=== PATIENT | female | born 1995 | race African-American/Black ===

== ENCOUNTER 2016-06-26 22:23 | Emergency (ER) | payer OTHER ==
[2016-06-27] MEDS ORDERED: Morphine INJ* 4 MG/ML 1 ML SYRINGE IV ONE (01:55)
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
[2016-06-27 03:41] VITALS: BP 140/87
== END 2016-06-27 03:40 | disposition home or self-care (01) ==
LOC: ED 22:23
DX: T79.2XXA Traumatic secondary and recurrent hemorrhage and seroma, initial encounter (principal); M54.5 Low back pain
CPT/HCPCS: 96374; 99282; J2270

== ENCOUNTER 2016-08-13 17:50 | Emergency (ER) | payer OTHER ==
[2016-08-13 18:17] VITALS: BP 107/83
[2016-08-13] MEDS ORDERED: predniSONE TAB* 20 MG PO ONE (20:12)
--- NOTE | 2016-08-13 20:13 | UC ---
Skin Complaint HPI - HPI Summary HPI Summary: 20 yo female with the onset of hives soon after a dose of keflex no relief with benadryl some wheezing (asthmatic) - History of Current Complaint Chief Complaint: UCRash Time Seen by Provider: 08/13/16 19:59 Stated Complaint: POSS ALLERGIC REACTION/PERIODIC SHORTNESS OF BREAT Hx Obtained From: Patient Hx Last Menstrual Period: has nexplanon Onset/Duration: Sudden Onset Onset Severity: Mild Current Severity: Mild Pain Intensity: 2 Pain Scale Used: 0-10 Numeric Location: Diffuse Character: Pruritus, Redness Aggravating: Nothing Alleviating: Nothing Associated Signs & Symptoms: Positive: Rash - Allergy/Home Medications Allergies/Adverse Reactions: Allergies Allergy/AdvReac Type Severity Reaction Status Date / Time Latex Allergy Intermediate Itching Verified 08/13/16 17:59 Penicillins [PCN] Allergy Rash Verified 08/13/16 17:59 Home Medications: Home Medications Mometasone/Formoter 200/5 MDI* [Dulera 200/5 MDI*] 1 puff INH DAILY 08/13/16 [ History Confirmed 08/13/16] Review of Systems Constitutional: Negative Skin: Rash Eyes: Negative ENT: Negative Respiratory: Negative Cardiovascular: Negative Gastrointestinal: Negative Genitourinary: Negative Motor: Negative Neurovascular: Negative Musculoskeletal: Negative Neurological: Negative Psychological: Negative All Other Systems Reviewed And Are Negative: Yes PMH/Surg Hx/FS Hx/Imm Hx Previously Healthy: Yes Respiratory History: Asthma - Surgical History Surgical History: Yes Surgery Procedure, Year, and Place: nasal surgery. LEFT WRIST REPAIR 2010-AUGUST , Hardware removed 07/2014 - Family History Known Family History: Positive: Hypertension, Diabetes - Social History Alcohol Use: Rare Substance Use Type: None Smoking Status (MU): Never Smoked Tobacco Have You Smoked in the Last Year: No Household Exposure Type: Cigarettes - Immunization History Most Recent Influenza Vaccination: 2012 Physical Exam Triage Information Reviewed: Yes Appearance: Well-Appearing, No Pain Distress, Well-Nourished Vital Signs: Initial Vital Signs Temp 98.8 F 08/13/16 18:01 Pulse 106 08/13/16 18:01 Resp 20 08/13/16 18:01 BP 107/83 08/13/16 18:01 Pulse Ox 99 08/13/16 18:01 Eyes: Positive: Conjunctiva Clear ENT: Positive: Normal ENT inspection, Pharynx normal, TMs normal. Negative: Trismus, Muffled/hoarse voice Neck: Positive: Supple, Nontender Respiratory: Positive: Chest non-tender, Lungs clear, Normal breath sounds, No respiratory distress Cardiovascular: Positive: RRR Musculoskeletal: Positive: ROM Intact, No Edema Neurological: Positive: Alert Skin: Positive: Other - urticaria Course/Dx - Diagnoses Provider Diagnoses: hives. bronchospasm by history Discharge - Discharge Plan Condition: Stable Disposition: HOME Prescriptions: Prednisone 60 mg PO DAILY #6 tab hydrOXYzine HCL TAB* [Atarax TAB*] 25 mg PO QID PRN #20 tab PRN Reason: Itching Patient Education Materials: Urticaria (ED) Referrals: JONN Moody [Primary Care Provider] - Additional Instructions: recheck for new or worsening symptoms or if not better in 3-4 days
== END 2016-08-13 20:21 | disposition home or self-care (01) ==
LOC: UCCORT 17:50
DX: L50.0 Allergic urticaria (principal); J98.01 Acute bronchospasm; T36.1X5A Adverse effect of cephalosporins and other beta-lactam antibiotics, initial encounter; Y92.9 Unspecified place or not applicable; Z88.0 Allergy status to penicillin; Z91.040 Latex allergy status; Z77.22 Contact with and (suspected) exposure to environmental tobacco smoke (acute) (chronic)
CPT/HCPCS: 99212; G0463; J7512

== ENCOUNTER 2016-09-06 21:45 | Emergency (ER) | payer OTHER ==
[2016-09-06 22:02] VITALS: BP 115/59
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
[2016-09-06] MEDS ORDERED: Ketorolac INJ* 60 MG/2 ML VIAL IM ONE (22:49)
[2016-09-06] MEDS ORDERED: Cyclobenzaprine TAB* 10 MG PO ONE ×2 (23:04→23:05)
--- NOTE | 2016-09-07 07:36 | RAD ---
HISTORY: Spinous process tenderness COMPARISONS: None VIEWS: 5, Frontal, lateral, open-mouth odontoid, and bilateral oblique views of the cervical spine. FINDINGS: The cervical spine is visualized from the skull base through C7-T1. ALIGNMENT: There is straightening with reversal of the normal cervical lordosis. VERTEBRAL BODIES: The odontoid process is intact. The atlantoaxial intervals are symmetric. JOINTS: There is no subluxation or dislocation. The facet joints are unremarkable. There is no osseous neural foraminal narrowing on the oblique views INTERVERTEBRAL DISCS: The intervertebral disc heights are normal. SOFT TISSUE: The prevertebral soft tissues are normal. OTHER: The skull base is normal. The lung apices are clear. IMPRESSION: STRAIGHTENING WITH REVERSAL OF THE NORMAL CERVICAL LORDOSIS
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
== END 2016-09-06 23:18 | disposition home or self-care (01) ==
LOC: UCCORT 21:45
DX: M54.5 Low back pain (principal); S16.1XXA Strain of muscle, fascia and tendon at neck level, initial encounter; Y92.9 Unspecified place or not applicable; V43.51XA Car driver injured in collision with sport utility vehicle in traffic accident, initial encounter; Z87.891 Personal history of nicotine dependence
CPT/HCPCS: 72050; 72110; 96372; 99212; A9270-GY; G0463; J1885

== ENCOUNTER 2017-01-11 15:18 | Emergency (ER) | payer OTHER ==
[2017-01-11 15:25] VITALS: BP 112/48
[2017-01-11] MEDS ORDERED: Albuterol 2.5 MG/3 ML NEB.SOL* (0.083%) INH ONE (15:40)
[2017-01-11] MEDS ORDERED: predniSONE TAB* 20 MG PO ONE (15:40)
[2017-01-11] MEDS ORDERED: Ipratropium 0.5MG/2.5ML NEB* 0.5 MG/2.5 ML NEB.SOLN INH ONE (15:40)
--- NOTE | 2017-01-11 15:41 | UC ---
Respiratory Complaint HPI - HPI Summary HPI Summary: harsh cough, gets this a couple times a year when the seasons change, resolves with Prednisone and pro-air---no fever and feels otherwise well - History of Current Complaint Chief Complaint: UCRespiratory Stated Complaint: COUGH, THROWING UP, NOT ABLE TO BREATHE Time Seen by Provider: 01/11/17 15:35 Hx Obtained From: Patient Hx Last Menstrual Period: July 2016 ?: No Onset/Duration: Sudden Onset Timing: Constant Severity Initially: Moderate Severity Currently: Moderate Character: Cough: Productive Aggravating Factors: Allergens, Deep Breaths, Recumbent Position Alleviating Factors: Bronchodilator Associated Signs And Symptoms: Positive: URI, Nasal Congestion - Allergies/Home Medications Allergies/Adverse Reactions: Allergies Allergy/AdvReac Type Severity Reaction Status Date / Time Latex Allergy Intermediate Itching Verified 01/11/17 15:25 Penicillins [PCN] Allergy Rash Verified 01/11/17 15:25 PMH/Surg Hx/FS Hx/Imm Hx Previously Healthy: No Respiratory History: Asthma - Surgical History Surgical History: Yes Surgery Procedure, Year, and Place: nasal surgery. LEFT WRIST REPAIR 2010-AUGUST , Hardware removed 07/2014 - Family History Known Family History: Positive: Hypertension, Diabetes - Social History Occupation: Employed Full-time Lives: With Family Alcohol Use: Rare Substance Use Type: None, Prescribed Smoking Status (MU): Never Smoked Tobacco Have You Smoked in the Last Year: No Household Exposure Type: Cigarettes - Immunization History Most Recent Influenza Vaccination: 2012 Review of Systems Constitutional: Negative Skin: Negative Eyes: Negative ENT: Negative Respiratory: Shortness Of Breath, Cough Cardiovascular: Negative Gastrointestinal: Negative Genitourinary: Negative Motor: Negative Neurovascular: Negative Musculoskeletal: Negative Neurological: Negative Psychological: Negative Is Patient Immunocompromised?: No All Other Systems Reviewed And Are Negative: Yes Physical Exam Triage Information Reviewed: Yes Appearance: No Pain Distress, Ill-Appearing, Obese Vital Signs: Initial Vital Signs Temp 97.8 F 01/11/17 15:20 Pulse 112 01/11/17 15:20 Resp 18 01/11/17 15:20 BP 112/48 01/11/17 15:20 Pulse Ox 99 01/11/17 15:20 Vital Signs Reviewed: Yes Eye Exam: Normal Eyes: Positive: Conjunctiva Clear ENT Exam: Normal ENT: Positive: Normal ENT inspection, Hearing grossly normal, Pharynx normal, Uvula midline. Negative: Nasal congestion, Nasal drainage, TM bulging, Tonsillar swelling, Tonsillar exudate, Trismus, Hoarse voice, Sinus tenderness Dental Exam: Normal Neck exam: Normal Neck: Positive: Supple, Nontender, No Lymphadenopathy Respiratory Exam: Normal Respiratory: Positive: Chest non-tender, Lungs clear, No accessory muscle use, Respiratory distress, Decreased breath sounds Cardiovascular Exam: Normal Cardiovascular: Positive: No Murmur, Pulses Normal, Brisk Capillary Refill, Tachycardia Musculoskeletal Exam: Normal Musculoskeletal: Positive: Strength Intact, ROM Intact, No Edema Neurological Exam: Normal Neurological: Positive: Alert, Muscle Tone Normal Psychological Exam: Normal Skin Exam: Normal UC Diagnostic Evaluation - Laboratory O2 Sat by Pulse Oximetry: 99 Re-Evaluation - Re-Evaluation First Eval Change: Improved - feels much better afer prednisone and neb---plan to d/c and follow with pcp Respiratory Course/Dx - Course Course Of Treatment: Prednisone, albuterol, increase fluids, follow with pcp - Differential Dx/Diagnosis Provider Diagnoses: Acute exacerbation of Bronchospasm Discharge - Discharge Plan Condition: Stable Disposition: HOME Prescriptions: Albuterol HFA INHALER* [Ventolin HFA Inhaler*] 2 puff INH Q4H PRN #1 mdi PRN Reason: Cough predniSONE TAB* [Deltasone TAB*] 20 mg PO DAILY #15 tab Patient Education Materials: Bronchospasm (ED), How to Use a Metered-Dose Inhaler and a Spacer (ED) Forms: *Work Release Referrals: JONN Moody [Primary Care Provider] - If Needed
== END 2017-01-11 17:00 | disposition home or self-care (01) ==
LOC: UCEAST 15:18
DX: J98.01 Acute bronchospasm (principal)
CPT/HCPCS: 87798; 99212; G0463; J7512; J7644

== ENCOUNTER 2018-03-31 07:02 | Emergency (ER) | payer OTHER ==
[2018-03-31 07:16] VITALS: BP 131/72
[2018-03-31 07:38] LABS: Influenza A Molecular NEGATIVE (Negative); Influenza B Molecular NEGATIVE (Negative)
--- NOTE | 2018-03-31 07:42 | UC ---
Throat Pain/Nasal Riley HPI - History of Current Complaint Chief Complaint: UCGeneralIllness Stated Complaint: SORE THROAT Time Seen by Provider: 03/31/18 07:42 Hx Last Menstrual Period: current Pain Intensity: 5 - Allergies/Home Medications Allergies/Adverse Reactions: Allergies Allergy/AdvReac Type Severity Reaction Status Date / Time latex Allergy Intermediate Itching Verified 03/31/18 07:17 Penicillins Allergy Intermediate Rash Verified 03/31/18 07:17 PMH/Surg Hx/FS Hx/Imm Hx - Surgical History Surgical History: Yes Surgery Procedure, Year, and Place: nasal surgery. LEFT WRIST REPAIR 2010-AUGUST , Hardware removed 07/2014 - Family History Known Family History: Positive: Hypertension, Diabetes - Social History Alcohol Use: Rare Substance Use Type: None Smoking Status (MU): Never Smoked Tobacco Have You Smoked in the Last Year: No Household Exposure Type: Cigarettes - Immunization History Most Recent Influenza Vaccination: 2012 Physical Exam Vital Signs: Initial Vital Signs Temp 99.9 F 03/31/18 07:13 Pulse 107 03/31/18 07:13 Resp 22 03/31/18 07:13 BP 131/72 03/31/18 07:13 Pulse Ox 100 03/31/18 07:13 Discharge - Sign-Out/Discharge Documenting (check all that apply): Patient Departure All imaging exams completed and their final reports reviewed: No Studies - Discharge Plan Condition: Stable Disposition: HOME Prescriptions: Lidocaine 2% VISCOUS* [Xylocaine 2% Viscous*] 15 ml SWISH SPIT Q4H PRN #1 btl PRN Reason: Sore Throat predniSONE TAB* [Deltasone 20 MG TAB*] 20 mg PO DAILY #13 tab Patient Education Materials: Pharyngitis (ED) Forms: *Work Release Referrals: [facility] [place] [facility]FERR[facility] [Outside] No Primary Care Phys,NOPCP [Primary Care Provider] - Additional Instructions: - Okay to alternate ibuprofen (Advil, Motrin)600mg and Tylenol 1000mg every 3 hours for pain. Take with food. Do NOT take for more than 4-5 days - Okay to gargle and spit warm salt water every 4 hours as needed for pain - Okay to gargle with the numbing medication as prescribed - Stay well hydrated - frequent sips of cold fluids will be soothing to your throat (popsicles, jello, ice cream, ice water). Avoid excess caffeine until your symptoms have resolved. -Throat infections are spread by oral secretions - do not share eating or drinking utensils until you symptoms are resolved. Clean items that may get your secretions such as cell phones, ipads, computer mouse, television remotes. Once you start to feel better, change your toothbrush and your pillowcase. - use inhaler - 2puffs every 4 hours as needed. - Take prednisone as prescribed until gone - humidify the air in the room where you sleep - boil water, run a hot steam shower, vaporizer, cups of water by heat register - Okay to take over the counter cough and decongestant medication - Contact your doctor to arrange a follow-up appointment as needed - Billing Disposition and Condition Condition: STABLE Disposition: Home
[2018-03-31] MEDS ORDERED: Lidocaine 2% VISCOUS* 15 ML UDC PO ONE (07:53)
== END 2018-03-31 08:24 | disposition home or self-care (01) ==
LOC: UCCORT 07:02
DX: J02.9 Acute pharyngitis, unspecified (principal); Z91.040 Latex allergy status; Z88.0 Allergy status to penicillin
CPT/HCPCS: 87651; 99212; G0463

== ENCOUNTER 2018-04-01 09:20 | Emergency (ER) | payer OTHER ==
--- NOTE | 2018-04-01 09:43 | ED ---
Influenza-Like Illness - HPI Summary HPI Summary: Patient is a 22-year-old female who presents to the emergency department for vomiting and diarrhea 3 days. Patient notes epigastric discomfort. Patient also notes sore throat and nasal congestion. She denies recent antibiotic use. She denies fever, chills, cough, urinary symptoms. Patient denies past history of Crohn's disease, ulcerative colitis, etc. Pt. denies recent antibx use, travel, hospitalization. Pt. notes she works at a [employer]. Symptoms are moderate in severity. No current modifying factors. - History of Current Complaint Chief Complaint: EDFluSymptoms Time Seen by Provider: 04/01/18 09:30 Hx Obtained From: Patient - Allergy/Home Medications Allergies/Adverse Reactions: Allergies Allergy/AdvReac Type Severity Reaction Status Date / Time latex Allergy Intermediate Itching Verified 04/01/18 09:54 Penicillins Allergy Intermediate Rash Verified 04/01/18 09:54 PMH/Surg Hx/FS Hx/Imm Hx Previously Healthy: Yes Endocrine/Hematology History: Denies: Hx Diabetes Cardiovascular History: Denies: Hx Hypertension, Hx Pacemaker/ICD Respiratory History: Reports: Hx Asthma, Hx Chronic Bronchitis, Hx Pneumonia, Hx Seasonal Allergies Denies: Hx Chronic Obstructive Pulmonary Disease (COPD), Hx Cystic Fibrosis, Hx Lung Cancer, Hx Pleural Effusion, Hx Pulmonary Edema, Hx Pulmonary Embolism, Hx Sleep Apnea, Other Respiratory Problems/Disorders History: Denies: Hx Acute Renal Failure, Hx Benign Prostatic Hyperplasia, Hx Chronic Renal Failure, Hx Dialysis, Hx Kidney Infection, Hx Kidney Stones, Other Problems/Disorders Musculoskeletal History: Denies: Hx Arthritis, Hx Back Problems, Hx Bursitis, Hx Congenital Bone Abnormalities, Hx Fibromyalgia, Hx Gout, Hx Orthopedic Injury, Hx Osteoporosis, Hx Scoliosis, Hx Tendonitis, Other Musculoskeletal History Sensory History: Denies: Hx Hearing Aid Neurological History: Denies: Hx Dementia, Hx Developmental Delay, Hx Headaches, Hx Migraine, Hx Nerve Disease, Hx Seizures, Hx Spinal Cord Injury, Hx Transient Ischemic Attacks (TIA) Psychiatric History: Reports: Hx Anxiety Denies: Hx Attention Deficit Hyperactivity Disorder, Hx Eating Disorder, Hx Depression, Hx Panic Disorder, Hx Post Traumatic Stress Disorder, Hx Inpatient Treatment, Hx Community Mental Health Tx, Hx Schizophrenia, Hx Bipolar Disorder , Hx Suicide Attempt, Hx of Violent Episodes Against Others, Hx Substance Abuse , Other Psychiatric Issues/Disorders - Surgical History Surgery Procedure, Year, and Place: nasal surgery. LEFT WRIST REPAIR 2010-AUGUST , Hardware removed 07/2014 - Immunization History Date of Tetanus Vaccine: >10 yrs Date of Influenza Vaccine: unk Infectious Disease History: No Infectious Disease History: Denies: Hx Clostridium Difficile, Hx Hepatitis, Hx Human Immunodeficiency Virus (HIV), Hx Shingles, Hx Tuberculosis, Traveled Outside the [place] in Last 30 Days - Family History Known Family History: Positive: Hypertension, Diabetes - Social History Occupation: Employed Full-time Lives: Alone Alcohol Use: Rare Substance Use Type: Reports: None Smoking Status (MU): Never Smoked Tobacco Have You Smoked in the Last Year: No Review of Systems Constitutional: Negative Negative: Fever, Chills Eyes: Negative Positive: Sore Throat, Nasal Discharge Cardiovascular: Negative Respiratory: Negative Positive: Abdominal Pain, Vomiting, Diarrhea, Nausea Genitourinary: Negative Musculoskeletal: Negative Skin: Negative Neurological: Negative All Other Systems Reviewed And Are Negative: Yes Physical Exam Triage Information Reviewed: Yes Vital Signs On Initial Exam: Initial Vitals Temp Pulse Resp BP Pulse Ox 97.1 F 99 20 146/73 96 04/01/18 09:20 04/01/18 09:20 04/01/18 09:20 04/01/18 09:20 04/01/18 09:20 Vital Signs Reviewed: Yes Appearance: Positive: Well-Appearing - Pt. sitting up in bed with emesis basin. Appears uncomfortable but nontoxic. Skin: Positive: Warm, Dry Head/Face: Positive: Normal Head/Face Inspection Eyes: Positive: Normal, EOMI ENT: Positive: Pharyngeal erythema, TMs normal. Negative: Tonsillar swelling, Tonsillar exudate Neck: Positive: Supple, Enlarged Nodes @ - right anterior cervical Respiratory/Lung Sounds: Positive: Clear to Auscultation, Breath Sounds Present Cardiovascular: Positive: Normal, RRR Abdomen Description: Positive: Other: - Obese. Abd is soft with tenderness to the epigastric region. NO pain at [place] point. NO rebound tenderness or guarding. Musculoskeletal: Positive: Normal, Strength/ROM Intact Neurological: Positive: Normal, CN Intact II-III Psychiatric: Positive: Affect/Mood Appropriate Diagnostics - Vital Signs Vital Signs Temp Pulse Resp BP Pulse Ox 04/01/18 09:20 97.1 F 99 20 146/73 96 - Laboratory Result Diagrams: 04/01/18 09:59 04/01/18 09:59 Lab Statement: Any lab studies that have been ordered have been reviewed, and results considered in the medical decision making process. Flu Symptom Course/Dx - Course Course Of Treatment: Patient presenting with vomiting and diarrhea. She also notes some upper respiratory symptoms are improving. She is afebrile stable vital signs. She has benign abdominal exam with only discomfort to the epigastric region. No concern for appendicitis. We'll give IV fluids and Zofran and check basic labs. CBC shows leukocytosis of 17.2 CRP elevated 174. Labs are otherwise unremarkable. Reexamination patient is feeling a bit better. Discussed blood work with patient. Abdomen was reexamined and patient has minimal tenderness to epigastric region. Discussed possibly obtaining imaging further evaluation given labs which patient declines. By mouth challenge was administered and patient has had no vomiting in the emergency department. We'll discharge home with a prescription for Zofran. Advised clear liquid diet for 24 hours. Increase fluids and rest. Follow-up with the [facility] clinic and return to the ER symptoms change or worsen. Patient understands and agrees with plan. - Diagnoses Provider Diagnoses: Viral gastroenteritis Discharge - Sign-Out/Discharge Documenting (check all that apply): Patient Departure Patient Received Moderate/Deep Sedation with Procedure: No - Discharge Plan Condition: Improved Disposition: HOME Prescriptions: Ondansetron TAB* [Zofran 4 MG Tab*] 4 mg PO Q6H PRN #12 tab PRN Reason: Nausea Patient Education Materials: Gastroenteritis (ED) Referrals: [facility] [Outside] Additional Instructions: Call the [facility] today to schedule a follow up appointment Zofran as directed for vomiting Clear liquid diet Increase fliuds Return to ER if symptoms change or worsen - Billing Disposition and Condition Condition: IMPROVED Disposition: Home
[2018-04-01] MEDS ORDERED: Ondansetron INJ* 2 MG/ML VIAL IV ONE ×2 (09:53→10:49)
[2018-04-01] MEDS ORDERED: NS 0.9% 1000 ML** 1,000 ML IV ONE ×2 (09:53→10:49)
[2018-04-01] MEDS ORDERED: Acetaminophen TAB* 325 MG PO ONE (09:54)
[2018-04-01 10:13] LABS: ABS Basophils 0 10^3/ul (0-0.2); ABS Eosinophils 0 10^3/ul (0-0.6); ABS Lymphocytes 1.1 10^3/ul (1.0-4.8); ABS Monocytes 0.9 10^3/ul (0-0.8); ABS Neutrophils 15.2 10^3/ul (1.5-7.7); ABS Nucleated RBC 0 10^3/ul; Eosinophil % 0 %; Hematocrit 43 % (35-47); Hemoglobin 14.4 g/dl (12.0-16.0); Lymphocyte % 6.3 %; Mean Corpuscular HGB Conc 34 g/dl (31-36); Mean Corpuscular Hemoglobin 30 pg (27-31); Mean Corpuscular Volume 90 fL (80-97); Mean Platelet Volume 7.4 fL (7.4-10.4); Nucleated Red Blood Cells % 0; Platelet Count 286 10^3/ul (150-450); Red Blood Count 4.79 10^6/ul (4.00-5.40); Red Cell Distribution Width 14 % (10.5-15); White Blood Count 17.2 10^3/ul (3.5-10.8)
[2018-04-01 10:33] LABS: ALT 17 U/L (7-52); AST 13 U/L (13-39); Albumin 4.4 g/dL (3.2-5.2); Albumin/Globulin Ratio 1.2 (1-3); Alkaline Phosphatase 109 U/L (34-104); Anion Gap 10 mmol/L (2-11); BUN/Creatinine Ratio 11.1 (8-20); Blood Urea Nitrogen 8 mg/dL (6-24); C Reactive Protein 174.31 mg/L (<8.01); CO2 Carbon Dioxide 25 mmol/L (22-32); Calcium 9.7 mg/dL (8.6-10.3); Chloride 101 mmol/L (101-111); EGFR African American 120.4 (>60); EGFR Non-African American 99.5 (>60); Globulin 3.8 g/dL (2-4); Glucose 102 mg/dL (70-100); Potassium 3.6 mmol/L (3.5-5.0); Sodium 136 mmol/L (135-145); Total Protein 8.2 g/dL (6.4-8.9)
[2018-04-01 10:39] LABS: HCG Pregnancy < 0.60 mIU/mL
[2018-04-01] MEDS ORDERED: Famotidine IV * 20 MG in NS 0.9% 100 ML* 100 ML IVPB ONE (10:49)
[2018-04-01 13:39] VITALS: BP 128/88
== END 2018-04-01 13:39 | disposition home or self-care (01) ==
LOC: ED 09:20
DX: A08.4 Viral intestinal infection, unspecified (principal); Z88.0 Allergy status to penicillin; Z91.040 Latex allergy status
CPT/HCPCS: 36415; 80053; 84702; 85025; 86140; 96374; 99283; A9270-GY; J2405

== ENCOUNTER 2018-06-23 16:54 | Emergency (ER) | payer SELFPAY | END 2018-06-23 17:08 | disposition left against medical advice (07) | LOC: UCCORT 16:54 | DX: Z53.21 Procedure and treatment not carried out due to patient leaving prior to being seen by health care provider (principal) ==

== ENCOUNTER 2020-01-31 09:30 | Inpatient (IN) ==
[~2020-01-31 09:30] MED LIST: Buffered Lidocaine 1% SYRIN 1 ml INTRADERM ONE; DiMENhydriNATE IV 50 mg/ml 1 ml VIAL IV PUSH PRN; Lactated Ringers 1000 ml BAG 1,000 ML IV SCH; Naloxone 0.4 mg VIAL 0.4 mg/ml 1 ml VIAL IV PRN
[2020-01-31] MEDS ORDERED: Midazolam 2 mg/2 ml VIAL 1 mg/ml 2 ml VIAL (2 mg) ONE (10:38)
[2020-01-31] MEDS ORDERED: fentaNYL 100 mcg/2 ml 50 MCG/ML VIAL ONE ×3 (10:38→18:32)
[2020-01-31] MEDS ORDERED: Propofol 10 MG/ML 20 ML BTL ONE (10:40)
[2020-01-31] MEDS ORDERED: Lidocaine 2% PF 5 ML VIAL ONE ×2 (10:40→17:22)
[2020-01-31] MEDS ORDERED: Heparin 5000 UNITS/ML 1 mL VIAL ONE (10:40)
[2020-01-31] MEDS ORDERED: Clindamycin 900 MG/D5W BAG 900 MG/50 ML BAG IVPB ONE (10:40)
[2020-01-31] MEDS ORDERED: Rocuronium 50 mg VIAL 10 mg/ml 5 ml VIAL (50 mg) ONE ×2 (13:38→13:57)
[2020-01-31] MEDS ORDERED: Acetaminophen IV 1 GM/100ML 100 ML ONE (13:38)
[2020-01-31] MEDS ORDERED: Bupivacaine 0.25% SDV 30 ML ONE (13:45)
[2020-01-31] MEDS ORDERED: Methylene Blue 0.5 % 50 MG/10 ML AMP IV ONE (13:47)
[2020-01-31] MEDS ORDERED: Dexamethasone IV 4 MG/ML VIAL 1 ml VIAL ONE (14:34)
[2020-01-31] MEDS ORDERED: HYDROmorphone 1 MG/1 ML SYRINGE ONE (15:32)
[2020-01-31] MEDS ORDERED: Ondansetron 4 mg VIAL 2 MG/ML 2 ml VIAL ONE ×2 (15:38→18:35)
[2020-01-31] MEDS ORDERED: fentaNYL 250 mcg/5 ml 50 MCG/ML 5 ml VIAL (250 MCG) ONE (15:53)
[2020-01-31] MEDS ORDERED: Metoprolol Tartrate 5 mg VIAL 5 ml VIAL (1 mg/ml) ONE (16:18)
[2020-01-31] MEDS ORDERED: Ketamine HCL 50 mg/ml 10 ml VIAL (500 MG) ONE (17:32)
[2020-01-31] MEDS ORDERED: HYDROcodone/ACET. 7.5/325 LIQ 15 ML UDC PO PRN (17:55)
[2020-01-31] MEDS ORDERED: HYDROmorphone 0.5 MG/0.5 ML SYRINGE IV SLOW PU PRN (17:55)
[2020-01-31] MEDS ORDERED: diPHENhydraMINE IV 50 MG/ML 1 ml VIAL (BENADRYL) SLOW PUSH PRN (17:55)
[2020-01-31] MEDS: Ondansetron 4 mg VIAL 2 MG/ML 2 ml VIAL IV PRN (18:35)
[2020-01-31] MEDS: fentaNYL 100 mcg/2 ml 50 MCG/ML VIAL IV PRN ×4 (18:37→19:25)
[2020-01-31] MEDS ORDERED: DiMENhydriNATE IV 50 mg/ml 1 ml VIAL ONE (20:03)
[2020-01-31] MEDS: Lactated Ringers 1000 ml BAG 1,000 ML IV SCH (20:35)
[2020-01-31] MEDS ORDERED: DiMENhydriNATE IV 50 mg/ml 1 ml VIAL IV PUSH PRN (22:51)
[2020-01-31] MEDS: Famotidine IV 10 MG/ML 2 ml VIAL (20 mg) IV SLOW PU SCH (23:26)
[2020-01-31] MEDS: Heparin 5000 UNITS/ML 1 mL VIAL SUBCUT SCH (23:26)
[2020-02-01] MEDS: Ondansetron 4 mg VIAL 2 MG/ML 2 ml VIAL IV PRN ×3 (01:54→23:31)
[2020-02-01] MEDS: Lactated Ringers 1000 ml BAG 1,000 ML IV SCH ×2 (03:02→10:34)
[2020-02-01] MEDS: Heparin 5000 UNITS/ML 1 mL VIAL SUBCUT SCH ×3 (06:14→21:43)
[2020-02-01] MEDS ORDERED: Prochlorperazine 5 mg/ml 2 ml VIAL (10 mg) IV PRN (08:00)
[2020-02-01] MEDS: Famotidine IV 10 MG/ML 2 ml VIAL (20 mg) IV SLOW PU SCH ×2 (08:48→21:39)
[2020-02-01] MEDS: D5W 1/2 NS KCl 20 meq 1000 ml 1,000 ML IV SCH (18:02)
[2020-02-02] MEDS: D5W 1/2 NS KCl 20 meq 1000 ml 1,000 ML IV SCH (02:54)
[2020-02-02] MEDS: Heparin 5000 UNITS/ML 1 mL VIAL SUBCUT SCH (05:41)
[2020-02-02 08:07] VITALS: BP 129/50
[2020-02-02] MEDS: Famotidine IV 10 MG/ML 2 ml VIAL (20 mg) IV SLOW PU SCH (08:32)
[2020-02-02] MEDS: Ondansetron 4 mg VIAL 2 MG/ML 2 ml VIAL IV PRN (11:21)
[2020-02-03] MEDS ORDERED: Scopolamine PATCH Remove NOTE PATCH OFF SCH (23:00)
== END 2020-02-02 12:30 | disposition home or self-care (01) | DRG 403 ==
LOC: AA 10:24 → SSU 19:51
PROVIDERS: ADMIT Surgery; ATTEND Surgery